=== PATIENT | female | born 1965 | race Two or more races ===

== ENCOUNTER → 2021-09-28 14:37 | Outpatient (BNVA) | payer OTHER, MEDICAID, SELFPAY | PROVIDERS: PCP Internal Medicine; Visit Provider Nurse Practitioner Family | DX: G43.109 Migraine with aura, not intractable, without status migrainosus (principal); M54.2 Cervicalgia | CPT/HCPCS: 99212 ==

== ENCOUNTER → 2022-04-02 14:47 | Outpatient (BNVA) | payer OTHER, MEDICAID, SELFPAY | PROVIDERS: PCP Internal Medicine; Visit Provider Nurse Practitioner Family | DX: G43.109 Migraine with aura, not intractable, without status migrainosus (principal); M54.2 Cervicalgia; Z79.899 Other long term (current) drug therapy | CPT/HCPCS: 99212 ==

== ENCOUNTER → 2022-10-04 13:47 | Outpatient (BNVA) | payer OTHER, SELFPAY | PROVIDERS: PCP Internal Medicine; Visit Provider Nurse Practitioner Family | DX: M54.2 Cervicalgia (principal); G43.109 Migraine with aura, not intractable, without status migrainosus | CPT/HCPCS: 99212 ==

== ENCOUNTER 2023-03-27 14:15 | Outpatient (AMB) | payer MEDICAID, SELFPAY ==
[2023-03-27 14:17] VITALS: BP 118/70; PULSE 71; O2SAT 99; BMI 25.6
--- NOTE | 2023-03-27 14:17 | MHC.OFFVIS ---
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 Pt reports she has 7 days temporal pressure headache with sinus congestion in February. She has seasonal allergy and getting allergy injection. Pt used rizatriptan at onset of headache, and it helped to relieve the migraine. Pt reports she takes magnesium 400 mg and vitamin B2 400 mg daily for migraine prevention. However, magnesium caused stomach pain. Pt reports pre-menopause symptoms, hot flashes and excessive sweating. She is on flexeril 5 mg BID as needed for neck and back pain. She has cortisone injection for back and shoulder. Mood is stable with citalopram 30 mg. Pt has asthma and contraindicated to use propranolol. [facility] Medical History Asthma HTN (hypertension) Migraine Surgical History H/O breast surgery Hx of section S/P thyroid biopsy Family History Father HTN (hypertension) Mother HTN (hypertension) Diabetes Skin cancer Sister HTN (hypertension) Maternal Grandfather Lung cancer Maternal Grandmother Skin cancer Social History (Updated 03/27/23 @ 14:26 by Kareen Aj CMA) Household Members: Spouse Housing: House Alcohol intake: current Alcohol intake frequency: holidays/special occasions only Patient Tobacco Use Status: Never used Tobacco Review of Systems Const All systems reviewed & are unremarkable except as noted in HPI and below Physical Exam Vital Signs: Last Vital Signs Pulse 71 03/27/23 14:17 BP 118/70 03/27/23 14:17 Pulse Ox 99 03/27/23 14:17 Oxygen Delivery Method Room Air 03/27/23 14:17 BMI result Body Mass Index 25.6 Const General: cooperative and healthy appearing Nutritional Appearance: average body habitus Orientation/consciousness: patient oriented x3 HEENT Head: Yes normocephalic Neck Other: Bilateral trapezius, semispinalis tightness.? Neck: Yes full ROM Resp Effort & Inspection: normal respiratory effort and able to speak in complete sentences Neuro General: patient oriented x3 and CN's II-XI intact bilaterally Deep tendon reflexes (DTR's): Rt Biceps (C5, C6): 3+, Left biceps reflex intensity grade: 3+, Right brachioradialis reflex intensity grade: 3+, Left brachioradialis reflex intensity grade: 3+, Right patellar reflex intensity grade: 3+ and Left patellar reflex intensity grade: 3+ Psych Appearance: grossly normal Mental Status: mental status grossly normal Speech and movement: Normal speech and movement present Affect: normal affect Attitude: cooperative Assessment & Plan Assessment & Plan (1) Cervicalgia: Code(s): M54.2 - Cervicalgia (2) Migraine with aura, not intractable, without status migrainosus: Code(s): G43.109 - Migraine with aura, not intractable, without status migrainosus Plan Advised patient to continue to take vitamin B2 400 mg q daily. Stop magnesium 400 mg. Start amitriptyline 10 mg qHS, and continue to use Rizatriptan 10 mg as needed at onset of headache. Continue to do home PT exercise for neck muscle tightness. Advised patient to track migraine frequency and intensity. Medications: New amitriptyline 10 mg PO BEDTIME 30 days 30 tabs 3RF Coding Level of Care Code Est Pt Level 4 (80684) Diagnoses Cervicalgia M54.2 Migraine with aura, not intractable, without status migrainosus G43.109
== END 2023-03-27 14:44 | disposition home or self-care (01) ==
PROVIDERS: Visit Provider Nurse Practitioner Family
DX: M54.2 Cervicalgia (principal); G43.109 Migraine with aura, not intractable, without status migrainosus
CPT/HCPCS: 99214

== ENCOUNTER → 2023-03-27 14:15 | Outpatient (BNVA) | payer OTHER, SELFPAY | PROVIDERS: Visit Provider Nurse Practitioner Family | DX: G43.109 Migraine with aura, not intractable, without status migrainosus (principal); M54.2 Cervicalgia | CPT/HCPCS: 99212 ==

== ENCOUNTER 2023-06-26 14:43 | Outpatient (AMB) | payer OTHER, MEDICAID, SELFPAY ==
--- NOTE | 2023-06-26 15:22 | MHC.OFFVIS ---
Intake Vital Signs 06/26/23 15:24 Height 5 ft Weight 132 lb 6 oz BMI 25.8 BP 122/78 Blood Pressure Location Rt brachial Position Sitting Respiration 16 Pulse 80 Pulse Source Pulse Oximeter Pulse Oximetry (%) 97 Oxygen Delivery Method Room Air Intake Visit Reasons: 3m follow up/ Confirmed Intake Note: Pt presents to office for 3 month follow up for migraines. 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 Pt reports she has 5 days temporal pressure headache in May. Pt used rizatriptan at onset of headache, and it helped to relieve the migraine. Pt takes vitamin B2 400 mg daily for migraine prevention. She tried magnesium, but it caused stomach pain. Pt reports pre-menopause symptoms, hot flashes and excessive sweating. 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 She did not start amitriptyline yet. She is on flexeril 5 mg BID as needed for neck and back pain. She had cortisone injection for back and shoulder. Pt can't sleep well due to the body pain. Mood is stable with citalopram 30 mg. Pt has asthma and contraindicated to use propranolol. [facility] Medical History Asthma HTN (hypertension) Migraine Surgical History S/P thyroid biopsy H/O breast surgery Hx of section Family History Father HTN (hypertension) Mother HTN (hypertension) Diabetes Skin cancer Sister HTN (hypertension) Maternal Grandfather Lung cancer Maternal Grandmother Skin cancer Social History Household Members: Spouse Housing: House Alcohol intake: current Alcohol intake frequency: holidays/special occasions only Patient Tobacco Use Status: Never used Tobacco Review of Systems Const All systems reviewed & are unremarkable except as noted in HPI and below Physical Exam Vital Signs: Last Vital Signs Pulse 80 06/26/23 15:24 Resp 16 06/26/23 15:24 BP 122/78 06/26/23 15:24 Pulse Ox 97 06/26/23 15:24 Oxygen Delivery Method Room Air 06/26/23 15:24 BMI result Body Mass Index 25.8 Const General: cooperative and healthy appearing Nutritional Appearance: average body habitus Orientation/consciousness: patient oriented x3 HEENT Head: Yes normocephalic Neck Other: Bilateral trapezius, semispinalis tightness.? Neck: Yes full ROM Resp Effort & Inspection: normal respiratory effort and able to speak in complete sentences Neuro General: patient oriented x3 and CN's II-XI intact bilaterally Deep tendon reflexes (DTR's): Rt Biceps (C5, C6): 3+, Left biceps reflex intensity grade: 3+, Right brachioradialis reflex intensity grade: 3+, Left brachioradialis reflex intensity grade: 3+, Right patellar reflex intensity grade: 3+ and Left patellar reflex intensity grade: 3+ Psych Appearance: grossly normal Mental Status: mental status grossly normal Speech and movement: Normal speech and movement present Affect: normal affect Attitude: cooperative Assessment & Plan Assessment & Plan (1) Cervicalgia: Code(s): M54.2 - Cervicalgia (2) Migraine with aura, not intractable, without status migrainosus: Code(s): G43.109 - Migraine with aura, not intractable, without status migrainosus Plan Advised patient to continue to take vitamin B2 400 mg q daily. Start amitriptyline 10 mg qHS, and continue to use Rizatriptan 10 mg as needed at onset of headache. Continue to do home PT exercise for neck muscle tightness. Advised patient to track migraine frequency and intensity. Coding Level of Care Code Est Pt Level 3 (69099) Diagnoses Cervicalgia M54.2 Migraine with aura, not intractable, without status migrainosus G43.109
[2023-06-26 15:24] VITALS: BP 122/78; PULSE 80; RESP 16; O2SAT 97; BMI 25.8
== END 2023-06-26 15:41 | disposition home or self-care (01) ==
PROVIDERS: PCP Internal Medicine; Visit Provider Nurse Practitioner Family
DX: M54.2 Cervicalgia (principal); G43.109 Migraine with aura, not intractable, without status migrainosus
CPT/HCPCS: 99213

== ENCOUNTER → 2023-06-26 14:43 | Outpatient (BNVA) | payer OTHER, SELFPAY | PROVIDERS: PCP Internal Medicine; Visit Provider Nurse Practitioner Family | DX: G43.109 Migraine with aura, not intractable, without status migrainosus (principal); M54.2 Cervicalgia | CPT/HCPCS: 99212 ==

== ENCOUNTER 2024-04-09 14:52 | Outpatient (AMB) | payer OTHER, SELFPAY ==
[2024-04-09 14:58] VITALS: BP 118/74; BMI 24.8
--- NOTE | 2024-04-09 14:58 | A.OFFVIS_ITS ---
Vital Signs 04/09/24 14:58 Height 5 ft Weight 127 lb BMI 24.8 BP 118/74 Blood Pressure Location Rt brachial Position Sitting Intake Visit Reasons: 6 mo f/u - Migraines Intake Note: Patient presents for migraines. patient still having migraines. Allergies pollen Allergy (Unknown, Uncoded 04/09/24 15:00) Unknown Medication List - Last Reconciled 04/09/24 by MILTON Summers albuterol sulfate mg inhalation Q4H PRN amitriptyline 10 mg PO BEDTIME 30 days baclofen 5 - 10 mg (1 - 2 x 5 mg) PO BEDTIME PRN 30 days cetirizine 10 mg PO DAILY citalopram 20 mg PO DAILY clobetasol 0.05% mL topical cyclobenzaprine 5 mg PO BID PRN 30 days fluocinolone and shower cap 0.01 % ea topical BID PRN fluticasone propionate 50 mcg/actuation 2 sprays intranasal DAILY galcanezumab-gnlm (Emgality Pen) 240 mg (2 mL) subcut ONCE 30 days hydroxyzine HCl 25 mg PO BEDTIME PRN magnesium oxide 400 mg PO BEDTIME mometasone 200 mcg/actuation (Asmanex HFA) 0 mcg inhalation BID omeprazole 20 mg PO DAILY PRN riboflavin (vitamin B2) 400 mg PO DAILY rizatriptan 10 mg PO Q2H PRN 30 days tacrolimus 0.1% topical HPI Comments Details: 58-yr-old female presents for f/u visit of snehal Pt denies any significant interval medical changes. Pt is having 1, maybe 2 headaches per week, but has 3 severe migraine attacks which can last a whole day. Neck tightness can trigger occipital region pressure as well. Rizatriptan helps some. Cyclobenzaprine helps the neck tightness but makes her tired. Baseline headache characteristics: Bilateral frontal, parietal top of head pressure, throbbing pain a/w photophobia, phonophobia, osmophobia w/ strong smells, nausea, neck tightness, allodynia, some difficulty thinking, activity intolerance. [facility] Medical History HTN (hypertension) Asthma Migraine Surgical History S/P thyroid biopsy H/O breast surgery Hx of section Family History Father HTN (hypertension) Mother HTN (hypertension) Diabetes Skin cancer Sister HTN (hypertension) Maternal Grandfather Lung cancer Maternal Grandmother Skin cancer Social History Household Members: Spouse Housing: House Alcohol intake: current Alcohol intake frequency: holidays/special occasions only Patient Tobacco Use Status: Never used Tobacco Physical Exam Vital Signs: Last Vital Signs BP 118/74 04/09/24 14:58 BMI result Body Mass Index 24.8 Const General: cooperative and no acute distress Orientation/consciousness: patient oriented x3 Resp Effort & Inspection: normal respiratory effort and able to speak in complete sentences Neuro General: patient oriented x3 Cranial nerves: Yes CN's II-XII intact bilaterally Cognition (Neuro): normal cognition Psych Appearance: grossly normal Mental Status: mental status grossly normal Speech and movement: Normal speech and movement present Affect: normal affect Attitude: cooperative Assessment & Plan Assessment & Plan (1) Migraine with aura, not intractable, without status migrainosus: Code(s): G43.109 - Migraine with aura, not intractable, without status migrainosus Category: Medical (2) Cervicalgia: Code(s): M54.2 - Cervicalgia Category: Medical Plan For cervicalgia: Stop cyclobenzaprine- causes sleepiness. For overall headache management: It is important to practice good self-care, including but not limited to eating a healthy diet, drinking enough fluids (typically 64 oz per day), maintaining a good sleep routine, and engaging in regular physical activity (typically 30-45 minutes of moderate physical activity 5 days per week). For acute headache treatment: It is important to take as needed acute medications at the first sign of headache, however you want to avoid taking most as needed headache too often as this can lead to medication overuse/adaptation headaches. Continue Trial Rizatriptan 10mg tab, 1/2 - 1 tab (5-10mg) at onset of headache, may repeat in 2 hours. Max of 2 tabs (200mg) per 24 hours. May adjunct with OTC Tylenol 650mg every 4 hours, Ibuprofen (liquigel) 600mg every 6 hours, or Naproxen (liquigel) 440mg every 12 hrs as needed. Acute migraine medication contraindications: None For headache prevention medication: Preventative medications should be taken routinely as prescribed for best effect, it may take several weeks to see full effect. Start Emgality 120mg/ml auto-injection: Loading dose: 240mg (2 120mg/ml autoinjections) via subcutaneous injection in 2 different sites). Then in 30 days, start Maintenance dose 120mg (120mg/ml autoinjector) subcutaneous injection every month. Pt requests injection training once Emgality available. Previous migraine prevention medication trials: Amitriptyline 10mg qhs- caused sleepiness. Migraine prevention medication contraindications: Beta-blockers d/t symptomatic asthma dx. Follow-up in 6 months or sooner prn. Medications: New galcanezumab-gnlm (Emgality Pen) Loading dose: 120 mg subcu injection x2 in alternate sites (total 240 mg). To be followed by maintenance dose of 120 mg subcu q.month. 240 mg (2 mL) subcut ONCE 30 days 2 mL 0RF G43.109 - Migraine with aura, not intractable, without status migrainosus baclofen 5 - 10 mg (1 - 2 x 5 mg) PO BEDTIME 30 days PRN 60 tabs 3RF muscle spasm Changed From rizatriptan Do not exceed 4 tabs/week 10 mg PO Q2H 12 tabs 6RF for migraine To rizatriptan Max 2 tabs per day or 6 tabs/week 10 mg PO Q2H 30 days PRN 12 tabs 6RF for migraine Coding Level of Care Code Est Pt Level 4 (17887) Diagnoses Migraine with aura, not intractable, without status migrainosus G43.109 Cervicalgia M54.2
== END 2024-04-09 16:05 | disposition home or self-care (01) ==
PROVIDERS: PCP Internal Medicine; Visit Provider Nurse Practitioner Family
DX: G43.109 Migraine with aura, not intractable, without status migrainosus (principal); M54.2 Cervicalgia
CPT/HCPCS: 99214

== ENCOUNTER → 2024-04-09 14:52 | Outpatient (BNVA) | payer OTHER, SELFPAY | PROVIDERS: PCP Internal Medicine; Visit Provider Nurse Practitioner Family | DX: G43.109 Migraine with aura, not intractable, without status migrainosus (principal); M54.2 Cervicalgia | CPT/HCPCS: 99212 ==

== ENCOUNTER → 2024-04-28 14:52 | Outpatient (BNVA) | payer OTHER, SELFPAY | PROVIDERS: PCP Internal Medicine; Visit Provider Nurse Practitioner Family ==

== ENCOUNTER 2024-10-21 15:23 | Outpatient (AMB) | payer OTHER, SELFPAY ==
--- NOTE | 2024-10-21 15:29 | MHC.OFFVIS ---
Vital Signs 10/21/24 15:30 Height 5 ft Weight 133 lb BMI 26.0 BP 126/76 Blood Pressure Location Rt brachial Position Sitting Pulse 85 Pulse Source Pulse Oximeter Pulse Oximetry (%) 98 Oxygen Delivery Method Room Air Intake Visit Reasons: Follow Up 6mo Intake Note: Patient presents follow up Migraine medication Allergies pollen Allergy (Unknown, Uncoded 10/21/24 15:31) Unknown HPI Comments Details: 59-yr-old female presents for f/u visit of migraine d/o and cervicalgia. Pt denies any significant interval medical changes. There does since the last visit, patient started Emgality which she states she is tolerating, and has been very effective in reducing the frequency severity. Prior to starting Emgality patient having greater than a migraine days per month and is now having 3 migraine days per. Neck tightness can trigger occipital region pressure, and now using cyclobenzaprine 5 10 q.h.s. which is helpful- typically only uses when she has the next day. Rizatriptan is now more effective. Baseline headache characteristics: Bilateral frontal, parietal top of head pressure, throbbing pain a/w photophobia, phonophobia, osmophobia w/ strong smells, nausea, neck tightness, allodynia, some difficulty thinking, activity intolerance. PFSH Medical History HTN (hypertension) Asthma Migraine Surgical History S/P thyroid biopsy H/O breast surgery Hx of section Family History Father HTN (hypertension) Mother HTN (hypertension) Diabetes Skin cancer Sister HTN (hypertension) Maternal Grandfather Lung cancer Maternal Grandmother Skin cancer Social History Household Members: Spouse Housing: House Alcohol intake: current Alcohol intake frequency: holidays/special occasions only Patient Tobacco Use Status: Never used Tobacco Physical Exam Vital Signs: Last Vital Signs Pulse 85 10/21/24 15:30 BP 126/76 10/21/24 15:30 Pulse Ox 98 10/21/24 15:30 Oxygen Delivery Method Room Air 10/21/24 15:30 BMI result Body Mass Index 26.0 Const General: cooperative and no acute distress Orientation/consciousness: patient oriented x3 Resp Effort & Inspection: normal respiratory effort and able to speak in complete sentences Neuro General: patient oriented x3 Cranial nerves: Yes CN's II-XII intact bilaterally Cognition (Neuro): normal cognition Psych Appearance: grossly normal Mental Status: mental status grossly normal Speech and movement: Normal speech and movement present Affect: normal affect Attitude: cooperative Assessment & Plan Assessment & Plan (1) Migraine with aura, not intractable, without status migrainosus: Code(s): G43.109 - Migraine with aura, not intractable, without status migrainosus Category: Medical (2) Cervicalgia: Code(s): M54.2 - Cervicalgia Category: Medical Plan For cervicalgia: May use cyclobenzaprine 5-10mg qhs prn. For overall headache management: It is important to practice good self-care, including but not limited to eating a healthy diet, drinking enough fluids (typically 64 oz per day), maintaining a good sleep routine, and engaging in regular physical activity (typically 30-45 minutes of moderate physical activity 5 days per week). For acute headache treatment: It is important to take as needed acute medications at the first sign of headache, however you want to avoid taking most as needed headache too often as this can lead to medication overuse/adaptation headaches. Continue Rizatriptan 10mg tab, 1/2 - 1 tab (5-10mg) at onset of headache, may repeat in 2 hours. Max of 2 tabs (200mg) per 24 hours. May adjunct with OTC Tylenol 650mg every 4 hours, Ibuprofen (liquigel) 600mg every 6 hours, or Naproxen (liquigel) 440mg every 12 hrs as needed. Acute migraine medication contraindications: None For headache prevention medication: Continue Emgality 120mg/ml auto-injections- as pt has had > 50% reduction in monthly migraine days since initiation of tx. Instructions: Emgality 120mg/ml auto-injection: maintenance dose 120mg (120mg/ml autoinjector) subcutaneous injection every month. Previous migraine prevention medication trials: Amitriptyline 10mg qhs- caused sleepiness. Migraine prevention medication contraindications: Beta-blockers d/t symptomatic asthma dx. Follow-up in 6 months or sooner prn. Medications: Changed From cyclobenzaprine 5 mg PO BID 30 days PRN 60 tabs 6RF muscle spasm To cyclobenzaprine 5 - 10 mg (1 - 2 x 5 mg) PO BEDTIME 30 days PRN 30 tabs 6RF muscle spasm From galcanezumab-gnlm (Emgality Pen) Loading dose: 120 mg subcu injection x2 in alternate sites (total 240 mg). To be followed by maintenance dose of 120 mg subcu q.month. 240 mg (2 mL) subcut ONCE 30 days 1 mL 6RF G43.109 - Migraine with aura, not intractable, without status migrainosus To galcanezumab-gnlm (Emgality Pen) maintenance dose of 120 mg subcu q.month. 120 mg subcut ONCE 30 days 1 mL 11RF G43.109 - Migraine with aura, not intractable, without status migrainosus Refilled rizatriptan Max 2 tabs per day or 6 tabs/week 10 mg PO Q2H 30 days PRN 12 tabs 6RF for migraine Coding Level of Care Code Est Pt Level 4 (92481) Diagnoses Migraine with aura, not intractable, without status migrainosus G43.109 Cervicalgia M54.2
[2024-10-21 15:30] VITALS: BP 126/76; PULSE 85; O2SAT 98; BMI 26.0
--- OUTSIDE RECORDS SUMMARY | 2024-10-21 17:43 | XMS_ITS | Encounter Summary ---
Author Organization [email or web address] [facility] Address [address] [place] [address] Care Team Providers Care Director Mission Name Role Phone Unavailable Primary Care Provider Unavailabl e Encounter Details Date Type Department Care Team (Latest Contact Info) Description 12/27/2020 Abstract [facility] CONVERSION[facility] Dental, Provider, DDS Social History Tobacco Use Types Packs/Day Years Used Date Smoking Tobacco: Never Assessed Comments Unknown Sex and Gender Information Value Date Recorded Sex Assigned at Female 05/21/2022 10:18 AM EDT Legal Sex Female 10:18 AM EDT Gender Identity Female 05/21/2022 10:18 AM EDT Sexual Orientation Choose not to disclose 2021 10:18 AM EDT documented as of this encounter Plan of Treatment Not on file documented as of this encounter Visit Diagnoses Not on filedocumented in this encounter
--- OUTSIDE RECORDS SUMMARY | 2024-10-21 17:43 | XMS_ITS | Encounter Summary ---
Author Organization [facility] Address [address] [place] [address] Care Team Providers Care Pediatric Critical Care Nurse Name Role Phone Unavailable Primary Care Provider Unavailabl e Encounter Details Date Type Department Care Team (Latest Contact Info) Description 07/28/2019 Abstract [facility] CONVERSIONS Dental, Provider, DDS Social History [...]
--- OUTSIDE RECORDS SUMMARY | 2024-10-21 17:43 | XMS_ITS | Clinical Summary ---
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 Phone Unavailable Primary Care Provider Unavailabl e Social History Tobacco Use Types Packs/Day Years Used Date Smoking Tobacco: Never Assessed Sex and Gender Information Value Date Recorded Sex Assigned at Not on file Gender Identity Not on file Sexual Orientation Not on file Plan of Treatment Health Maintenance Due Date Last Done Comments Hepatitis C Virus Screening 1967 HIV Screening 1980 DTaP/Tdap/Td Vaccines (1 - Tdap) 1986 Hepatitis B Vaccines (1 of 3 - 19+ 3-dose series) 1986 Pneumococcal Vaccines 50+ (1 of 1 - PCV) 2017 Zoster (Shingles) Vaccine (1 of 2) 2017 COVID-19 Vaccine ( - 2023-2 5 season) 2024 Pneumococcal Vaccine: Pediat britni (0-5 Years) and At-Risk Patients (6 to 49 Years) Aged Out No longer eligible b ased on patient's age to complete this topic
--- OUTSIDE RECORDS SUMMARY | 2024-10-21 17:43 | XMS_ITS | Encounter Summary ---
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 Lettering Name Role Phone Unavailable Primary Care Provider Unavailabl e Reason for Visit * Reason Onset Date Comments Patient states DD of [place] 08/19/2024 Encounter Details Date Type Department Care Team (Late st Contact Info) Description 08/19/2024 Telephone [facility] [address] [place] [address] Zuleyma Lilliananpreet [address] [place] [address] Patient states DD of [place] Social History Tobacco Use Types Packs/Day Years Used Date Smoking Tobacco: Never Assessed Comments Unknown Sex and Gender Information Value Date Recorded Sex Assigned at Female 05/21/2022 10:18 AM EDT Legal Sex Female 10:18 AM EDT Gender Identity Female 05/21/2022 10:18 AM EDT Sexual Orientation Choose not to disclose 2021 10:18 AM EDT documented as of this encounter Miscellaneous Notes * Telephone Encounter - Natalie Quintero - 08/19/2024 8:42 AM EST Patient states she has DD of [place] insurance but unable to find the number in ortal and patient did dnot have her card available at the time as she was at work. Informed patient she must take card with her to office to add insurance to her chart. Currently the insurance listed is [employer] documented in this encounter Plan of Treatment Not on file documented as of this encounter Visit Diagnoses Not on filedocumented in this encounter
--- OUTSIDE RECORDS SUMMARY | 2024-10-21 17:43 | XMS_ITS | Clinical Summary ---
Author Organization [facility] Address [address] [place] [address] Phone Care Team Providers Care Variety Saw Operator Name Role Phone Macie Conley MD Primary Care Prov ider Allergies Active Allergy Reactions Criticality Noted Date Comments Adhesive 01/17/2024 Adhesive Tape [Tape]: Other Reaction(s): Rash/Dermatitis Other 04/09/2016 1. Seasonal Allergies 2. Fruit (Generic) Medications albuterol 2.5 mg /3 mL (0.083 %) nebulizer solution TAKE 1 VIAL BY NEBULIZATION EVERY 4 HOURS NEEDED FOR WHEEZING OR SHORTNESS OF BREATH. 0 Active meloxicam (MOBIC) 7.5 mg tablet Take 1 Tablet by mouth daily as needed for Pain (Only as needed.). 4 Active lidocaine 3.5 % adhesive patch,medicated Apply 1 Patch topically daily. 4 Active diclofenac (VOLTAREN) 1 % topical gel Apply 4 g topically 4 times daily as needed for Other (arthritis pain). 4 Active acetaminophen (TYLENOL 8 HOUR) 650 mg 8 hr tablet Take 1 Tablet by mouth every 8 hours as needed for Pain. 4 Active mometasone (Asmanex HFA) 200 mcg/actuation HFA aerosol inhaler inhaler TOME DOS INHALACIONES POR V A ORAL DOS VECES AL D A 3 Active omeprazole (PriLOSEC) [address] capsule Take 1 Capsule by mouth daily. 3 Active mometasone HFA (Asmanex HFA) 100 mcg/actuation HFA aerosol inhaler inhaler Inhale into the lungs. Allergy provider Active fluticasone HFA (Flovent HFA) 110 mcg/actuation inhaler 2 Active rizatriptan (MAXALT) 10 mg tablet 2 Active ketoconazole (NIZORAL) 2 % shampoo USE A FACE WASH EVERYDAY 1 Active clobetasoL 0.05 % shampoo APPLY 1 DOSE TO DRY SCALP DAILY AND LATHER IN RINSE AFTER 5-10 MINUTES USE CONSECUTIVELY FOR 2 WEEKS THEN DECREASE USE TO 3 TIMES A WEEK 1 Active fluocinolone and shower cap 0.01 % oil Apply 1 Dose topically daily. Apply to scalp daily 1 Active fluticasone propionate (FLONASE) 50 mcg/actuation nasal spray 2 sprays each nostril twice daily as needed. 0 Active albuterol HFA (PROAIR HFA ; PROVENTIL HFA ; VENTOLIN HFA) 90 mcg/actuation inhaler Inhale 2 Puffs into the lungs every 4 hours as needed for Cough or Wheezing. 0 Active cetirizine (ZyrTEC) 10 mg tablet Take 1 Tab by mouth daily for 360 days. One tab daily 8 Active trimethoprim-po lymyxin b (POLYTRIM) ophthalmic solution Place 1 Drop into the right eye 4 times daily for 7 days. - Right Eye Active estradioL (ESTRING) 2 mg (7.5 mcg /24 hour) vaginal ring Insert 2 mg into the vagina every 3 (three) months. follow package directions 1 each 3 4 025 Active citalopram (CeleXA) 20 mg tabletIndicatio ns:Essential (primary) hypertension,Dy smenorrhea, unspecified TOME 1 TABLETA POR VIA ORAL TODOS [place] 90 tablet 1 5 Active Active Problems Problem Noted Date Diagnosed Date Thyroid nodule 04/22/2024 Overview (04/22/2024): Ultrasound of thyroid on 04/08/2020 showed stable left-sided thyroid nodule, 1 stable nodule on the right side of the thyroid and one stable nodule on the right side that has decreased in size. Fine-needle aspiration biopsy done in 2018 showed benign left-sided thyroid nodule. Depression 12/27/2023 Uterine fibroid 08/08/2022 Overview (04/22/2024): 08/07/2022 FINDINGS: The uterus measures 10.1 x 5.2 x 4.9 cm for a volume of 134 mL, and contains a 2.0 x 2.7 x 3.5 cm exophytic left fundal fibroid, previously 1.8 x 1.4 x 2.6 cm. Psoriasis of scalp 07/05/2021 Anxiety 07/05/2021 Perimenopause 05/23/2020 Overview (04/22/2024): Last Assessment & Plan: I discussed symptoms of perimenopause with the patient. Recommend that she keep track of her menstrual cycles. Discussed definition of menopause is 1 year without menses and that perimenopause can vary in duration. Recommend follow-up if menopausal symptoms become bothersome Dyslipidemia 06/15/2019 Lactose intolerance 02/09/2019 Migraine 01/18/2015 GERD (gastroesophageal reflux disease) 5 Constipation 01/18/2015 Asthma 12/22/2014 Allergic rhinitis 12/22/2014 Encounters Date Type Department Care Team Description 08/13/2024 5:48 PM EST - 08/13/2024 11:59 PM EST Hospital Encounter [facility] MRI [address] [place] [id number] Radiculopathy, cervical region Discharge Disposition: Home or Self Care 08/05/2024 3:30 PM EST Office Visit Orthopedic Surgery [facility] [address] [facility] [address] [place] [address] Jasper Mix MD Cervicalgia (Primary Dx); Cervical radiculopathy from Last 3 Months Immunizations Name Administration Dates Next Due Influenza trivalent, with pr eservative (Fluzone; Afluria) 6mo and older 05/26/2014,03/26/2013,08/26/2008 Moderna SARS-CoV-2 COVID-19, mRNA, LNP-S, preservative free 12/06/2020,11/08/2020 PPD Test 09/22/2019, 9,11/20/2017,11/28,12/14/2015,12/22/2014 Pneumococcal polysaccharide 23 valent (Pneumovax 23) 2yo and older 04/20/2016,01/30/2011 Td Tetanus diptheria (Tdvax) 7yo and older 01/10/2006 Tdap Tetanus diptheria acell ular pertussis (Boostrix; Adacel) 7yo and older 09/18/2018,12/16/2012 Varicella live (Varivax) 12m o and older 05/05/2013 Surgical History Surgery Date Site/Laterality Comments SECTION PROCEDURE: HISTORICAL DELIVERY TUBAL LIGATION PROCEDURE: HISTORICAL TUBAL LIGATION COLONOSCOPY 03/20/2018 PROCEDURE: HISTORICAL COLONOSCOPY; COMMENT: negative screening exam BREAST SURGERY adan 2015 Left PROCEDURE: SD UNLISTED PROCEDURE BREAST; COMMENT: ductasl excision Medical History Medical History Date Comments Asthma DX:Asthma Thyroid nodule DX:Thyroid nodul e Allergic rhinitis 12/22/2014 DX:Allergic rh initis GERD (gastroesophageal reflu x disease) 01/18/2015 DX:GERD (gastroesophageal re flux disease) Constipation 01/18/2015 DX:Constipation Migraine 01/18/2015 DX:Migraine Essential hypertension DX:Essent ial hypertension Anxiety state DX:Anxiety state Elevated fasting glucose 06/06/2020 DX:Elev ated fasting glucose Acute right flank pain 04/13/2021 DX:Acute right flank pain Covid-19 07/25/2022 DX:COVID-19; COM MENT: Diagnosed 07/18/2022 with asthma exacerbation Pelvic pain 04/28/2020 DX:Pelvic pain Family History Medical History Relation Name Comments No Known Problems Daughter Coronary artery disease Father Hypertension Father Prostate cancer Maternal Grandfather Diabetes Maternal Grandmother Hypertension Maternal Grandmother Diabetes Mother Hypertension Mother Other: skin cancer Mother Other: skin cancer Mother's side grandmot her No Known Problems Other Stomach cancer Paternal Grandfather No Known Problems Paternal Grandmother No Known Problems Sister x2 Breast cancer Neg Hx Relation Name Status Comments Daughter Father Alive Maternal Grandfather Maternal Grandmother Alive Mother Alive Mother's side Other Paternal Grandfather Paternal Grandmother Sister x2 Alive Social History Tobacco Use Types Packs/Day Years Used Date Smoking Tobacco: Never Smokeless Tobacco: Never Tobacco Cessation:Counseling Given: Not Answered Alcohol Use Standard Drinks/Week Comments No 0 (1 standard drink = 0.6 oz pur e alcohol) Housing Instability Answer Date Recorde d Are you worried that in the next 2 months you may not have stable housing? No 07/12/2024 Food Access & Nutrition Answer Date Rec orded Do you have access to a vari ety of food including fruits and vegetables? Yes 07/12/2024 Access to Healthcare Answer Date Record ed Within the last 3 months, ho w many times did you visit the emergency department for your medical care? 0 07/12/2024 Health Literacy Answer Date Recorded How often do you need to hav e someone help you when you read instructions, pamphlets, or other written material from your doctor or pharmacy? Rarely 07/12/2024 Caregiver: How often do you need to have someone help you when you read instructions, pamphlets, or other written material from your doctor or pharmacy? Not on file 07/12/2024 Financial Risk Answer Date Recorded How hard is it for you to pa y for the very basics like food, housing, medical care, and air conditioning / heating? Not very hard 07/12/2024 Transportation Answer Date Recorded Has the lack of transportati on kept you from meetings, work, or from getting things needed for daily living? No Has the lack of transportati on kept you from medical appointments or from getting medications? No 07/12/2024 Social Isolation Answer Date Recorded How often do you feel lonely or isolated from those around you? Sometimes 07/12/2024 Food Risk Answer Date Recorded Within the past 12 months we worried whether our food would run out before we got money to buy more. Never true 07/12/2024 Within the past 12 months th e food we bought just didn't last and we didn't have money to get more. Never true 07/12/2024 Dependent Care Answer Date Recorded Do you need help finding or paying for care for your loved ones. For example, child adolescent psychiatrist or elderly care for an older adult? No 07/12/2024 Education Answer Date Recorded Do you think completing more education or training, like finishing a GED, going to college, or learning a trade, would be helpful for you? N/A 07/12/2024 Employment and Income Answer Date Recor ded During the last four weeks, have you been actively looking for work? No 07/12/2024 Living Situation Answer Date Recorded What is your living situation? 1 09/12/2023 Comments No Sex and Gender Information Value Date Recorded Sex Assigned at Not on file Legal Sex Female 8:16 PM EST Gender Identity Not on file Sexual Orientation Not on file Obstetrics History Para Term AB IAB SAB Ectopic Multiple Livin g Live Births 2 2 2 2 Date Outcome GA Total Labor Labor/2nd/3rd Weight Sex Type Anes PTL Nita A1 A5 Name Clin Term Term Last Filed Vital Signs Vital Sign Reading Time Taken Comments Blood Pressure 138/85 07/13/2024 8:52 AM EST Pulse 80 07/13/2024 8:52 AM EST Temperature - - Respiratory Rate - - Oxygen Saturation - - Inhaled Oxygen Concentration - - Weight 59 kg (130 lb) 08/05/2024 3:26 PM EST Height 154.9 cm (5' 1 ) 08/05/2024 3:26 PM EST Body Mass Index 24.56 08/05/2024 3:26 PM EST Plan of Treatment Upcoming Encounters Date Type Department Care Team (Late st Contact Info) Description 12/29/2024 3:00 PM EDT Office Visit Adult Medicine [address] [phone] Macie Conley MD [address] [place] [id number] Health Maintenance Due Date Last Done Comments Hepatitis B Vaccines (1 of 3 - 19+ 3-dose series) 1986 Zoster Vaccines (1 of 2) 2017 05/05/2013 Pneumococcal Vaccine: 50+ Years (2 of 2 - PCV) 04/20/2017 04/20/2016, 01/30/2011 Pneumococcal Vaccine: Pediatrics (0 to 5 Years) and At-Risk Patients (6 to 64 Years) (2 of 2 - PCV) 04/20/2017 04/20/2016, 01/30/2011 COVID-19 Vaccine ( season) 2024 12/06/2020, 11/08/2020 Influenza Vaccine (#1) 2024 4, 03/26/2013, 08/26/2008 Hypertension/CHF/CAD Annual BMP Blood Test 11/17/2024 11/18/2023, 11/18/2023, 11/18/2023 Depression Screening 07/12/2025 07/12/2024, 12/27/19 Social Influencers of Health Screening 07/12/2025 07/12/2024 Breast Cancer Screening 06/25/2026 06/25/20 24, 06/19/2023, 03/30/2022, Additional history exists Cervical Cancer Screening: HPV 07/25/2027 07/25/2022 Colorectal Cancer Screening: Colonoscopy 03/20/2028 03/20/2018 Cholesterol Screening (Lipid Panel) 06/17/2028 06/17/2023 DTaP,Tdap,and Td Vaccines (4 - Td or Tdap) 09/18/2028 09/18/2018, 12/16/2012, 01/10/2006 Varicella Vaccines Aged Out 05/05/2013 No longer eligible based on patient's age to complete this topic HIV Screening Completed 04/20/2016 Hepatitis C Screening Completed 04/20/2016 HIB Vaccines Aged Out No longer eligi ble based on patient's age to complete this topic HPV Vaccines Aged Out No longer eligi ble based on patient's age to complete this topic Hepatitis A Vaccines Aged Out No long er eligible based on patient's age to complete this topic IPV Vaccines Aged Out No longer eligi ble based on patient's age to complete this topic MMR Vaccines Aged Out No longer eligi ble based on patient's age to complete this topic Meningococcal ACWY Vaccine Aged Out N o longer eligible based on patient's age to complete this topic Meningococcal B Vacine Aged Out No lo nger eligible based on patient's age to complete this topic RSV Immunization Patients Under 20 months Aged Out No longer eligible based on patient's age to complete this topic Procedures Procedure Name Priority Date/Time Associated Diagnosis Comments MR CERVICAL SPINE WO CONTRAST Routine 08/13/2024 7:05 PM EST Radiculopathy, cervical region MG MAMMO DIGITAL SCREENING W CHARLIE BILAT Routine 06/25/2024 8:01 AM EST Encounter for screening mammogram for breast cancer DEPRESSION SCREENING Routine 12/27/2023 ANNUAL BMP BLOOD TEST Routine 11/18/2023 LIPID PANEL Routine 06/17/2023 HPV Routine 07/25/2022 COLONOSCOPY Routine 03/20/2018 HEPATITIS C SCREENING Routine 04/20/2016 HIV SCREENING Routine 04/20/2016 from Last 3 Months or Most Recently Relevant to Health Maintenance Results * MR Cervical Spine wo Contrast (08/13/2024 7:05 PM EST) Anatomical Region Laterality Modality C-spine, Spine Magnetic Resonan ce 08/14/2024 9:53 AM EST Impressions 08/14/2024 11:24 AM EST Mild degenerative changes of the cervical spine as detailed above. -------- FINAL REPORT -------- Dictated By: Blair Rivero Dictated Date: 08/14/2024 09:53 ET Assigned Physician: Blair Rivero Reviewed and Electronically Signed By: Blair Rivero Signed Date: 08/14/2024 11:24 ET Workstation ID: [id number] Transcribed By: Self Edit Transcribed Date: 08/14/2024 09:58 ET Narrative 08/14/2024 11:24 AM EST PROCEDURE: MRI of the cervical spine without intravenous contrast. TECHNIQUE: Sagittal and axial multisequence MRI of the cervical spine without intravenous contrast administration. HISTORY: radiculopathy COMPARISON: Radiographs dated 12/26/2020. FINDINGS: The visualized portions of the brain and skull base are normal. Small left thyroid nodule which would be better evaluated with ultrasound. ??The paraspinous soft tissues are otherwise unremarkable. Straightening and slight reversal of the typical cervical lordosis. ??No listhesis. ??No concerning marrow infiltrative lesion. The cord is normal in caliber and signal. Cervical disc levels: C2-3: Minimal endplate irregularity without spinal or foraminal stenosis. C3-4: Mild endplate irregularity. ??Minimal bilateral uncovertebral spurs. ??No spinal or foraminal stenosis. C4-5: No significant disc or facet abnormality. ??No spinal or foraminal stenosis. C5-6: Mild disc space height loss. ??Small bilateral uncovertebral spurs and a minimal symmetric disc bulge. ??Mild left facet arthropathy. ??No significant spinal or foraminal stenosis. C6-7: Mild disc space height loss and endplate irregularity. ??Small bilateral uncovertebral spurs. ??No spinal stenosis. ??Mild left foraminal stenosis. C7-T1: Minimal endplate irregularity. ??No spinal or foraminal stenosis. Procedure Note Blair Rivero MD - 08/14/2024 PROCEDURE: MRI of the cervical spine without intravenous contrast. TECHNIQUE: Sagittal and axial multisequence MRI of the cervical spinewithout intravenous contrast administration. HISTORY: radiculopathy COMPARISON: Radiographs dated 12/26/2020. FINDINGS: The visualized portions of the brain and skull base are normal. Small left thyroid nodule which would be better evaluated with ultrasound.The paraspinous soft tissues are otherwise unremarkable. Straightening and slight reversal of the typical cervical lordosis. Nolisthesis. No concerning marrow infiltrative lesion. The cord is normal in caliber and signal. Cervical disc levels: C2-3: Minimal endplate irregularity without spinal or foraminalstenosis. C3-4: Mild endplate irregularity. Minimal bilateral uncovertebral spurs.No spinal or foraminal stenosis. C4-5: No significant disc or facet abnormality. No spinal or foraminalstenosis. C5-6: Mild disc space height loss. Small bilateral uncovertebral spursand a minimal symmetric disc bulge. Mild left facet arthropathy. Nosignificant spinal or foraminal stenosis. C6-7: Mild disc space height loss and endplate irregularity. Smallbilateral uncovertebral spurs. No spinal stenosis. Mild left foraminalstenosis. C7-T1: Minimal endplate irregularity. No spinal or foraminal stenosis. IMPRESSION: Mild degenerative changes of the cervical spine as detailed above. -------- FINAL REPORT -------- Dictated By: Blair Rivero Dictated Date: 08/14/2024 09:53 ET Assigned Physician: Blair Rivero Reviewed and Electronically Signed By: Blair Rivero Signed Date: 08/14/2024 11:24 ET Workstation ID: [id number] Transcribed By: Self Edit Transcribed Date: 08/14/2024 09:58 ET us Serjio Britton DO IMG MRI PROCEDURES Final Result * MG Mammo Digital Screening w Charlie bilat (06/25/2024 8:01 AM EST) Anatomical Region Laterality Modality Breast Bilateral Mammography 06/25/2024 9:29 AM EST Impressions 06/25/2024 9:31 AM EST BILATERAL BREASTS: Negative, no evidence of malignancy. Normal interval follow- up is recommended in 12 months. BREAST DENSITY: B - There are scattered areas of fibroglandular density. BI-RADS CATEGORY: 1 - NEGATIVE RECOMMENDATION: Screening bilateral mammogram is recommended in 1 year. Mammo Location: [facility], [address] [place] [address], [id number], . -------- FINAL REPORT -------- Dictated By: Sadiq Silveira Dictated Date: 06/25/2024 09:29 ET Assigned Physician: Sadiq Silveira Reviewed and Electronically Signed By: Sadiq Silveira Signed Date: 06/25/2024 09:31 ET Workstation ID: [id number] Transcribed By: Self Edit Transcribed Date: 06/25/2024 09:29 ET Narrative 06/25/2024 9:31 AM EST STUDY: Bilateral screening mammography with tomosynthesis and CAD TECHNIQUE: Bilateral full-field digital screening mammography is obtained and read in conjunction with computer-aided detection. ??Tomosynthesis as well as 2-D C view imaging were obtained. ?? COMPARISON: Comparison made to multiple prior, most recent June 19, 2023, and most remote February 21, 2015. BILATERAL BREASTS: No significant masses, suspicious calcifications or other abnormalities are seen. Procedure Note Sadiq Silveira MD - 06/25/2024 STUDY: Bilateral screening mammography with tomosynthesis and CAD TECHNIQUE: Bilateral full-field digital screening mammography is obtainedand read in conjunction with computer-aided detection. Tomosynthesis aswell as 2-D C view imaging were obtained. COMPARISON: Comparison made to multiple prior, most recent May, and most remote February 21, 2015. BILATERAL BREASTS: No significant masses, suspicious calcifications orother abnormalities are seen. IMPRESSION: BILATERAL BREASTS: Negative, no evidence of malignancy. Normal intervalfollow-up is recommended in 12 months. BREAST DENSITY: B - There are scattered areas of fibroglandular density. BI-RADS CATEGORY: 1 - NEGATIVE RECOMMENDATION: Screening bilateral mammogram is recommended in 1 year. Mammo Location: [facility], [address] [place] [address], [phone], . -------- FINAL REPORT -------- Dictated By: Sadiq Silveira Dictated Date: 06/25/2024 09:29 ET Assigned Physician: Sadiq Silveira Reviewed and Electronically Signed By: Sadiq Silveira Signed Date: 06/25/2024 09:31 ET Workstation ID: [id number] Transcribed By: Self Edit Transcribed Date: 06/25/2024 09:29 ET Macie Conley MD IMG BI PROCEDURES Final Result * Depression Screening (12/27/2023) Depression Screening Abstracted Historical Provider HEALTH MAINTENANCE Final Result * Annual BMP Blood Test (11/18/2023) Annual BMP Blood Test Abstracted [facility] Provider HEALTH MAINTENANCE Final Result * (ABNORMAL) Lipid panel (06/17/2023) [facility] LDL/HDL Ratio 3 0 - 4 Triglycerides 113 0 - 150 mg/dL Cholesterol 219(A) 0 - 200 mg/dL HDL 69 >=40 mg/dL LDL Cholesterol 128(A) 0 - 100 mg/dL Blood Venous blood specimen / Unknown Result [facility] Provider LAB BLOOD ORDERABLES Jenna l Result * Cervical Cancer Screening: HPV (07/25/2022) [facility] Cervical Cancer Screening: HPV Abstracted ,Negative Result [facility] Provider HEALTH MAINTENANCE Final Result * Colonoscopy (03/20/2018) [facility] Colonoscopy Abstracted, No interpretation Anatomical Region Laterality Modality Other Result [facility] Provider HEALTH MAINTENANCE Final Result * HIV Screening (04/20/2016) [facility] HIV Screening Abstracted [facility] Provider HEALTH MAINTENANCE Final Result * Hepatitis C Screening (04/20/2016) [facility] Hepatitis C Screening Abstracted Result [facility] Provider HEALTH MAINTENANCE Final Result from Last 3 Months or Most Recently Relevant to Health Maintenance Insurance [facility] [employer] Care Teams Variety Saw Operator Relationship Specialty Start Date End Date Macie Conley MD [address] [place] [phone] PCP - General Internal Medicine 02/19/22
--- OUTSIDE RECORDS SUMMARY | 2024-10-21 17:43 | XMS_ITS ---
Author Name [facility] Organization Unknown Encounters Encounter Type Encounter Reason Primary Diagnosis Location Date Ambulatory [facility] 08/07/2024 Care Team Organization Name Specialty Phone Email Start Date End Da te [facility] 2024
--- OUTSIDE RECORDS SUMMARY | 2024-10-21 17:43 | XMS_ITS | Clinical Summary ---
Author Organization [facility] Address [address] [place] [address] Care Team Providers Care Analytics Senior Manager Name Role Phone Unavailable Primary Care Provider Unavailabl e Allergies Active Allergy Reactions Criticality Noted Date Comments Ibuprofen 08/19/2024 Medications albuterol (2.5 MG/3ML) 0.083% nebulizer solution TAKE 1 VIAL BY NEBULIZATION EVERY 4 HOURS NEEDED FOR WHEEZING OR SHORTNESS OF BREATH. 5 Active loratadine (Claritin) 10 MG tablet TOME 1 TABLETA POR V A ORAL TODOS LOS D 5 Active citalopram (CeleXA) 20 MG tablet TOME 1 TABLETA POR VIA ORAL TODOS LOS GONZALEZ 5 Active estradiol (Vivelle-DOT) 0.05 MG/24HR APLIQUE UN PARCHE TWICE A WEEK 5 Active Active Problems Problem Noted Date Diagnosed Date Thyroid nodule 04/22/2024 Overview (09/11/2024): Ultrasound of thyroid on 04/08/2020 showed stable left-sided thyroid nodule, 1 stable nodule on the right side of the thyroid and one stable nodule on the right side that has decreased in size. Fine-needle aspiration biopsy done in 2018 showed benign left-sided thyroid nodule. Depression 12/27/2023 Uterine fibroid 08/08/2022 Overview (09/11/2024): 08/07/2022 FINDINGS: The uterus measures 10.1 x 5.2 x 4.9 cm for a volume of 134 mL, and contains a 2.0 x 2.7 x 3.5 cm exophytic left fundal fibroid, previously 1.8 x 1.4 x 2.6 cm. Psoriasis of scalp 07/05/2021 Perimenopause 05/23/2020 Overview (09/11/2024): Last Assessment & Plan: I discussed symptoms of perimenopause with the patient. Recommend that she keep track of her menstrual cycles. Discussed definition of menopause is 1 year without menses and that perimenopause can vary in duration. Recommend follow-up if menopausal symptoms become bothersome Dyslipidemia 06/15/2019 Lactose intolerance 02/09/2019 Migraine 01/18/2015 Asthma 12/11/2013 Allergic rhinitis 02/25/2012 Anxiety 02/25/2012 Backache 02/25/2012 Constipation 02/25/2012 GERD (gastroesophageal reflux disease) 2 Encounters Date Type Department Care Team Description 09/23/2024 3:30 PM EST Office Visit [facility] [address] [place] [address] Kleber Wadsworth 09/11/2024 3:00 PM EST Office Visit [facility] [address] [place] [address] Frandy Javier, SINA History of revision of root canal treatment of anterior tooth (Primary Dx); Chronic dental pain 08/19/2024 11:30 AM EST Office Visit [facility] [address] [place] [address] Ana Amor 08/19/2024 Telephone [facility] [address] [place] [address] Ana Amor Patient states DD of [place] from Last 3 Months Social History Tobacco Use Types Packs/Day Years Used Date Smoking Tobacco: Never Smokeless Tobacco: Never Tobacco Cessation:Counseling Given: Not Answered Alcohol Use Standard Drinks/Week Comments Never 0 (1 standard drink = 0.6 oz pur e alcohol) Comments Unknown Sex and Gender Information Value Date Recorded Sex Assigned at Female 05/21/2022 10:18 AM EDT Legal Sex Female 10:18 AM EDT Gender Identity Female 05/21/2022 10:18 AM EDT Sexual Orientation Choose not to disclose 2021 10:18 AM EDT Plan of Treatment Health Maintenance Due Date Last Done Comments CT Colonography 1967 Colonoscopy 1967 Colorectal Cancer Screening 1967 Depression Screening 1967 FIT DNA/Cologuard 1967 FIT 1967 FOBT 1967 HIV Screening 1967 SDOH Screening 1967 Sigmoidoscopy 1967 Alcohol/Substance Use Screening 1979 Hepatitis C Screening 1985 Hepatitis B Vaccines (1 of 3 - 19+ 3-dose series) 1986 Pap Smear 1988 Cervical Cancer Screening 1997 HPV/Cotest 1997 Zoster Vaccines (1 of 2) 2017 Pneumococcal Vaccine: 50+ Years (2 of 2 - PCV) 04/20/2017 04/20/2016, 01/30/2011 Dental Oral Exam 12/27/2021 06/27/2021, 09/2019, 07/28/2019, Additional history exists Dental Prophylaxis 12/27/2021 06/27/2021, 0 12/27/2020, 07/08/2020, Additional history exists Dental X-Ray: Bitewings 09/28/2022 09/28/19, 08/08/2021, 12/27/2020, Additional history exists Dental X-Ray: Full Mouth 05/25/2023 05/24/2020, 03/22 COVID-19 Vaccine ( season) 2024 12/06/2020, 11/08/2020 Influenza Vaccine (#1) 2024 4, 03/26/2013, 03/26/2013, Additional history exists Tobacco Screening 09/23/2025 09/23/2024 Mammogram 06/25/2026 06/25/2024 DTaP/Tdap/Td Vaccines (3 - Td or Tdap) 09/18/2028 09/18/2018, 12/16/2012, 01/10/2006 RSV Patients and Patients Aged 60 years or older (1 - 1-dose 75+ series) 2042 HIB Vaccines Aged Out No longer eligi [...] patient's age to complete this topic Meningococcal Vaccine Aged Out No tammy vidya eligible based on patient's age to complete this topic RSV under 20 months Aged Out No longe r eligible based on patient's age to complete this topic Rotavirus Vaccines Aged Out No longer eligible based on patient's age to complete this topic Procedures Procedure Name Priority Date/Time Associated Diagnosis Comments 9 INTRAORAL - PERIAPICAL FIRST RADIOGRAPHIC IMAGE Routine 09/23/2024 3:30 PM EST LIMITED ORAL EVALUATION - PROBLEM FOCUSED Routine 09/23/2024 3:30 PM EST CASE PRESENTATION, DETAILED AND EXTENSIVE TREATMENT PLANNING Routine 09/11/2024 3:00 PM EST History of revision of root canal treatment of anterior tooth Chronic dental pain RE-EVAL - LIMITED, PROBLEM FOCUSED (EST PATIENT; NOT POST-OP VISIT) Routine 09/11/2024 3:00 PM EST History of revision of root canal treatment of anterior tooth Chronic dental pain INTRAORAL - PERIAPICAL FIRST RADIOGRAPHIC IMAGE Routine 08/19/2024 11:30 AM EST 9 LIMITED ORAL EVALUATION - PROBLEM FOCUSED Routine 08/19/2024 11:30 AM EST BITEWING - SINGLE RADIOGRAPHIC IMAGE Routine 09/27/2021 12:00 AM EST PROPHYLAXIS - ADULT Routine 06/27/2021 1 2:00 AM EST PERIODIC ORAL EVALUATION - ESTABLISHED PATIENT Routine 06/27/2021 12:00 AM EST PANORAMIC RADIOGRAPHIC IMAGE Routine 05/24/2020 12:00 AM EST from Last 3 Months or Most Recently Relevant to Health Maintenance Insurance DENTAL - [facility] FULL (MEDICAID) DENTAL - [facility]
== END 2024-10-21 15:53 | disposition home or self-care (01) ==
LOC: HO.HSMS 15:23
PROVIDERS: PCP Internal Medicine; Visit Provider Nurse Practitioner Family
DX: G43.109 Migraine with aura, not intractable, without status migrainosus (principal); M54.2 Cervicalgia
CPT/HCPCS: 99214

== ENCOUNTER → 2024-10-21 15:23 | Outpatient (BNVA) | payer OTHER, SELFPAY | PROVIDERS: PCP Internal Medicine; Visit Provider Nurse Practitioner Family | DX: G43.109 Migraine with aura, not intractable, without status migrainosus (principal); M54.2 Cervicalgia | CPT/HCPCS: 99212 ==

== ENCOUNTER 2025-05-10 14:17 | Outpatient (AMB) | payer OTHER, SELFPAY ==
[2025-05-10 14:20] VITALS: BP 120/72; BMI 25.6
--- NOTE | 2025-05-10 14:20 | A.OFFVIS_ITS ---
Vital Signs 05/10/25 14:20 Height 5 ft Weight 131 lb BMI 25.6 BP 120/72 Blood Pressure Location Rt brachial Position Sitting Comment Unable to obtain O2 and pulse due to nails Intake Visit Reasons: 7 mo follow up Intake Note: Patient presents follow up Migraine medication Bit Sander Required: No Accompanied by: Self / Same As Patient Allergies pollen Allergy (Unknown, Uncoded 05/10/25 14:23) Unknown Medication List - Last Reconciled 05/10/25 by MILTON Summers albuterol sulfate mg inhalation Q4H PRN amitriptyline 10 mg PO BEDTIME 30 days baclofen 5 - 10 mg (1 - 2 x 5 mg) PO BEDTIME PRN 30 days cetirizine 10 mg PO DAILY citalopram 20 mg PO DAILY clobetasol 0.05% mL topical cyclobenzaprine 5 - 10 mg (1 - 2 x 5 mg) PO BEDTIME PRN 30 days fluocinolone and shower cap 0.01 % ea topical BID PRN fluticasone propionate 50 mcg/actuation 2 sprays intranasal DAILY galcanezumab-gnlm (Emgality Pen) 120 mg subcut ONCE 30 days hydroxyzine HCl 25 mg PO BEDTIME PRN magnesium oxide 400 mg PO BEDTIME mometasone 200 mcg/actuation (Asmanex HFA) 0 mcg inhalation BID omeprazole 20 mg PO DAILY PRN riboflavin (vitamin B2) 400 mg PO DAILY rizatriptan 10 mg PO Q2H PRN 30 days tacrolimus 0.1% topical topiramate 25 mg PO BEDTIME 30 days HPI Comments Details: 60-yr-old female presents for f/u visit of migraine d/o and cervicalgia. Pt denies any significant interval medical changes. Since the last visit, her insurance required a trial of topiramate, and thus she stopped Emgality. She did start topiramate at 25mg qhs, however she had to stop it because it caused palpitations. She is again having 1-2 moderate migraine days per month, and severe migraine 3 days per month, lasting 2-3 days per attack. Stress can trigger a migraine. Rizatriptan is helpful. Emgality was previously very effective She continues to have intermittent neck tightness. Cyclobenzaprine 5 10 q.h.s. is helpful. 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 Baseline headache characteristics: Bilateral frontal, parietal top of head pressure, throbbing pain a/w photophobia, phonophobia, osmophobia w/ strong smells, nausea, neck tightness, allodynia, some difficulty thinking, activity intolerance. [facility] Medical History HTN (hypertension) Asthma Migraine Surgical History S/P thyroid biopsy H/O breast surgery Hx of section Family History Father HTN (hypertension) Mother HTN (hypertension) Diabetes Skin cancer Sister HTN (hypertension) Maternal Grandfather Lung cancer Maternal Grandmother Skin cancer Social History Household Members: Spouse Housing: House Alcohol intake: current Alcohol intake frequency: holidays/special occasions only Patient Tobacco Use Status: Never used Tobacco Physical Exam Vital Signs: Last Vital Signs BP 120/72 05/10/25 14:20 BMI result Body Mass Index 25.6 Const General: cooperative and no acute distress Orientation/consciousness: patient oriented x3 Resp Effort & Inspection: normal respiratory effort and able to speak in complete sentences Neuro Other: Posterior cervical muscle tightness General: patient oriented x3 Cranial nerves: Yes CN's II-XII intact bilaterally Cognition (Neuro): normal cognition Psych Appearance: grossly normal Mental Status: mental status grossly normal Speech and movement: Normal speech and movement present Affect: normal affect Attitude: cooperative Assessment & Plan Assessment & Plan (1) Migraine with aura, not intractable, without status migrainosus: Code(s): G43.109 - Migraine with aura, not intractable, without status migrainosus Category: Medical (2) Cervicalgia: Code(s): M54.2 - Cervicalgia Category: Medical Plan For cervicalgia: May use cyclobenzaprine 5-10mg qhs prn. For overall headache management: It is important to practice good self-care, including but not limited to eating a healthy diet, drinking enough fluids (typically 64 oz per day), maintaining a good sleep routine, and engaging in regular physical activity (typically 30-45 minutes of moderate physical activity 5 days per week). For acute headache treatment: It is important to take as needed acute medications at the first sign of headache, however you want to avoid taking most as needed headache too often as this can lead to medication overuse/adaptation headaches. * Continue Rizatriptan 10mg tab, 1/2 - 1 tab (5-10mg) at onset of headache, may repeat in 2 hours. Max of 2 tabs (200mg) per 24 hours. May adjunct with OTC Tylenol 650mg every 4 hours, Ibuprofen (liquigel) 600mg every 6 hours, or Naproxen (liquigel) 440mg every 12 hrs as needed. Acute migraine medication contraindications: None For headache prevention medication: * Resume riboflavin 400 mg daily in the morning * Discontinue topiramate 25 mg q.h.s. order * Resume Emgality, as the patient previously had > 50% reduction in monthly migraine days with the use. * Instructions for Emgality 120mg/ml auto-injection: * Loading dose: 240mg (2 120mg/ml auto-injections) via subcutaneous injection in 2 different sites). * Then 30 days after loading dose, start Maintenance dose: 120mg (120mg/ml autoinjector) subcutaneous injection every month. * Important considerations: * Store Emgality in the refrigerator in it's original packaging in order to protect from light. * Remove Emgality at least 1 hour prior to taking the injection. * Emgality can be left out of the fridge for?up to 7 days at a temperature not above 86?F. If either of these conditions are exceeded, then Emgality must be thrown away. * Once Emgality has been stored out of refrigeration, do not place it back in the refrigerator. Previous migraine prevention medication trials: Amitriptyline 10mg qhs- caused sleepiness. Topiramate 25 mg- caused palpitations. Magnesium- cause GI upset Migraine prevention medication contraindications: Beta-blockers d/t symptomatic asthma dx. Follow-up in 6 months or sooner prn. Medications: Changed From riboflavin (vitamin B2) 400 mg PO DAILY 30 tabs 6RF To riboflavin (vitamin B2) 400 mg PO DAILY 30 tabs 11RF 30 days From galcanezumab-gnlm (Emgality Pen) maintenance dose of 120 mg subcu q.month. 120 mg subcut ONCE 30 days 1 mL 11RF G43.109 - Migraine with aura, not intractable, without status migrainosus To galcanezumab-gnlm (Emgality Pen) 240mg loading dose, to be f/b 120mg monthly maintenance dose. 240 mg (2 mL) subcut ONCE 1 mL 0RF 30 days G43.109 - Migraine with aura, not intractable, without status migrainosus Refilled cyclobenzaprine 5 - 10 mg (1 - 2 x 5 mg) PO BEDTIME PRN 30 tabs 6RF muscle spasm 30 days rizatriptan Max 2 tabs per day or 6 tabs/week 10 mg PO Q2H PRN 12 tabs 6RF for migraine 30 days cyclobenzaprine 5 - 10 mg (1 - 2 x 5 mg) PO BEDTIME 30 days PRN 30 tabs 6RF muscle spasm Discontinued magnesium oxide Discontinued Reason: Doctor's Order 400 mg PO BEDTIME 30 tabs 6RF baclofen Discontinued Reason: Doctor's Order 5 - 10 mg (1 - 2 x 5 mg) PO BEDTIME 30 days PRN 60 tabs 3RF muscle spasm topiramate Discontinued Reason: Doctor's Order 25 mg PO BEDTIME 30 days 30 tabs 1RF amitriptyline Discontinued Reason: Doctor's Order 10 mg PO BEDTIME 30 days 30 tabs 3RF Coding Level of Care Code Est Pt Level 4 (40285) Diagnoses Migraine with aura, not intractable, without status migrainosus G43.109 Cervicalgia M54.2
--- OUTSIDE RECORDS SUMMARY | 2025-05-10 18:02 | XMS_ITS | Data Portability ---
Author Organization [facility] [id number] Address [address] [place] [address] Care Team Providers Care Sales Agent Pest Control Service Name Role Phone ROOPA AGEE Referring Provider ELVIE JOSEPH Primary Care Provider [phone] Assessment Encounter Date Assessment Date Assessment LastModified by Organization Details LastModified Time 11/27/2024 11/27/2024 59-year-old with neck upper back and right shoulder and arm pain. I examined and interviewed the patient, reviewed the record, and determined the patient to be a good candidate for trial of trigger point injections for myofascial pain. I went over the risks, benefits, alternatives, complications of injection versus conservative therapy with the patient. I spent 50 minutes reviewing the record and interviewing and examining the patient. [email or web address] Not available 11/30/2024 09:55:19 Plan of Treatment Reminders Order Date Submit Date Provider Last Modified By Organization Details Last Modified Time Details Appointments None record ed. Lab None record ed. Referral None record ed. Procedures None record ed. Surgeries None record ed. Imaging None record ed. Medication Orders None record ed. Patient TargetsNo targets recorded. Patient InstructionsNo instructions recorded. Reason for Referral None Reported. Results Created Date Observation Date Name Description Value Unit Range Abnormal Flag Note LastModifiedBy Organization Detail LastModifiedTime 12/02/19 25 08/14/2024 XR, cervi jerrell spine , 4 or 5 view No observ ation record ed. [email or web address] Not Available 2024 10:46:00 Result Notes None recorded. Procedures Surgical History Date Name Laterality Status Provider Name and Address Organization Details Recorded Time section completed Mi Batista [facility] 11/26/2024 15:12:15 ligation of fallopian tube completed [facility] 11/26/2024 15:12:23 colonoscopy completed Mi [facility] 11/26/2024 15:12:30 operation on breast duct completed [facility] 11/26/2024 15:12:57 liposuction of subcutaneous tissue completed [facility] 11/27/2024 14:45:34 Imaging Results None recorded. Procedure Notes None recorded. Medical Equipment None Reported. Allergies Allergen ID Allergen Name Allergen Category Reaction Reaction Severity Criticality Documentation Date Start Date Code Code System Note Provider Name and Address Organization Details Recorded Time 71209 adhesive environme nt,medica tion Not available Not available Not available 11/26/2024 [facility] 5 15:11:56 28835 strawberr y allergeni c extract food Not available Not available Not available 11/27/2024 72219 4 RxNorm [facility] 5 14:44:04 07128 pineapple extract food Not available Not available Not available 11/27/2024 98760 74 RxNorm [facility] 5 14:44:11 70690 peach food Not available Not available Not available 11/27/2024 [facility] 5 14:44:17 39240 grape extract food,medi cation Not available Not available Not available 11/27/2024 10782 2 RxNorm [facility] 5 14:44:29 Medications Name Sig Start Date Stop Date Status Note LastModified by Organization Details LastModified Time amoxicillin 500 mg capsule TOME 1 C PSULA (500 MG) POR V A ORAL CADA OCHO HORAS POR 7 D active Not Available Not Available N ot Available prednisone 10 mg tablet PLEASE SEE ATTACHED FOR DETAILED DIRECTIONS active Not Available Not Available N ot Available Estring 2 mg (7.5 mcg/24 hour) vaginal ring INSERT 1 RING INTO THE VAGINA EVERY 3 (THREE) MONTHS. FOLLOW PACKAGE DIRECTIONS active Not Available Not Available N ot Available albuterol sulfate 2.5 mg/3 mL (0.083 %) solution for nebulization TAKE 1 VIAL BY NEBULIZATIO N EVERY 4 HOURS NEEDED FOR WHEEZING OR SHORTNESS OF BREATH. active Not Available Not Available N ot Available rizatriptan 10 mg tablet TAKE 1 TABLET EVERY 2 HOURS NEEDED FOR FOR MIGRAINE FOR 30 DAYS MAX 2 TABS PER DAY OR 6 TABS/WEEK active Not Available Not Available Not Available topiramate 25 mg tablet TOME 1 TABLETA POR V A ORAL TODOS LOS D AL ACOSTARSE active Not Available Not Available No t Available estradiol 0.05 mg/[address] 1 PATCH ON THE SKIN 2 TIMES A WEEK. active Not Available Not Available No t Available acetaminophe n 500 mg tablet TOME ZOIE TABLETA POR V A ORAL CADA SEIS HORAS CUANDO SEA NECESARIO PARA EL DOLOR POR 7 D active Not Available Not Available No t Available meloxicam 7.5 mg tablet TOME 1 TABLETA POR V A ORAL TODOS LOS D ONLY NEEDED FOR PAIN active Not Available Not Available No t Available oxycodone-ac etaminophen 5 mg-325 mg tablet TAKE 1 TABLET BY MOUTH EVERY 4-6 HOURS NEEDED FOR PAIN ALLOWED TO DISPENSE LESSER QUANTITY active Not Available Not Available No t Available citalopram 20 mg tablet TOME 1 TABLETA POR V A ORAL TODOS LOS D active Not Available Not Available No t Available polymyxin B sulfate 10,000 unit-trimeth oprim 1 mg/mL eye drops PLACE 1 DROP INTO THE RIGHT EYE 4 TIMES DAILY FOR 7 DAYS. active Not Available Not Available No t Available loratadine 10 mg tablet TOME 1 TABLETA POR V A ORAL TODOS LOS D active Not Available Not Available No t Available Ventolin HFA 90 mcg/actuatio n aerosol inhaler TAKE 2 PUFFS EVERY 4-6 HOURS NEEDED FOR COUGHING OR WHEEZING OR SHORTNESS OF BREATH active Not Available Not Available No t Available cyclobenzapr ine 5 mg tablet TOME ZOIE O DOS TABLETAS POR V A ORAL AL ACOSTARSE PARA EL ESPASMO MUSCULAR CUANDO SEA NECESARIO active Not Available Not Available No t Available clobetasol 0.05 % shampoo APPLY TO SCALP 2X A WEEK, LEAVE ON 5 MINUTES THEN WASH OFF active Not Available Not Available No t Available fluocinolone 0.01 % scalp oil and shower cap APPLY TOPICALLY TO SCALP DOS VECES AL D A CUANDO SEA NECESARIO ITCH active Not Available Not Available No t Available estradiol-no rethindrone acet 0.5 mg-0.1 mg tablet TOME 1 TABLETA POR V A ORAL TODOS LOS D active Not Available Not Available No t Available Asmanex HFA 200 mcg/actuatio n aerosol inhaler TOME DOS INHALACIONE S POR V A ORAL DOS VECES AL D A active Not Available Not Available No t Available baclofen 5 mg tablet TAKE 1-2 TABLETS ORALLY AT BEDTIME NEEDED FOR MUSCLE SPASM FOR 30 DAYS active Not Available Not Available No t Available Vitals Date Recorded Body height Body mass index (BMI) Body weight Heart rate Oxygen saturation Oxygen saturation in Arterial blood by Pulse oximetry Body temperature Systolic And Diastolic Provider Name and Address Organization Details Last Updated DateTime 5 152.4 cm 25.6 kg/m2 86492.6 g 77 /min 100 % 100 % 98 [degF] 129/82 mm[Hg] [facility] 5 14:42:37 Social History None recorded. Functional Status None recorded. Mental Status None recorded. Family History Nothing Reported. Medical History Condition Response Diabetes N Allergies/Hayfever Y Anxiety Y Hernia N Head Trauma/Injury Acid Reflux (GERD) Y Migraines Y Asthma Y Depression N Substance Use N Back Injury N Ulcers N Heart Attack (IA) N Hypertension Y Gynecological HistoryNo gynecological history recorded. Obstetrics History GPAL:G 0 P 0 0 0 0 Past Encounters Encounter ID Performer Location Encounter Start Date Encounter Closed Date Diagnosis/Indication Diagnosis SNOMED-CT Code Diagnosis ICD10 Code Diagnosis IMO Codes Diagnosis Note [id number] Jasper Jaeger MD [id number] [address] [place] [address] 11/27/2024 13:40:26 11/30/2024 09:55:28 Myofascial pain 855267428 M79.18 258641 Health Concerns Section Related Observation LastModified by Organization Detai ls LastModified Time None Recorded Concern Status LastModified by Organization Details LastModified Time None Recorded Advance Directives Directive None Recorded Payers Insurance Date Sequence Insurance Name Policy Number Policy Castillo Covered Member ID Castillo Member ID Guarantor Name 11/24/2024 1 [facility] - [facility] (MEDICAID REPLACEMENT - HMO) [id number] Xin Pinto [id number] Xin Pinto Notes Date Note Type Note Provider Name and Address Organization Details Recorded Time 11/27/2024 text/html ROS as noted in the HPI The patient is a 59-year-old female who comes in for her initial consultation with complaint of 5 months of right neck, arm and shoulder pain and right arm weakness and numbness. Left lower extremity head causes pain. Patient is taking baclofen 5 mg at at bedtime for muscle spasms. She cannot take ibuprofen because it causes stomach pain. She does take Tylenol occasionally. She underwent physical therapy which did not help. Shoulder x-ray and MRI showed AC joint arthritis and rotator cuff tendinopathy. Dr. Mix injected her shoulder which improved some. She had an MRI of the cervical spine which showed C5-6 left facet arthropathy and disc bulge, also C6-7 left foraminal stenosis and disc space height loss with endplate irregularity. She had right-sided cervical facet injections by Dr. Rios. The translating service was used for the visit. Jasper Jaeger MD [facility], [place] [facility] 11/30/2024 09:55:24 OBGyn Episode No OBEpisode recorded.
== END 2025-05-10 15:26 | disposition home or self-care (01) ==
LOC: HO.HSMS 14:18
PROVIDERS: PCP Internal Medicine; Visit Provider Nurse Practitioner Family
DX: G43.109 Migraine with aura, not intractable, without status migrainosus (principal); M54.2 Cervicalgia
CPT/HCPCS: 99214

== ENCOUNTER → 2025-05-10 14:17 | Outpatient (BNVA) | payer OTHER, SELFPAY | PROVIDERS: PCP Internal Medicine; Visit Provider Nurse Practitioner Family | DX: G43.109 Migraine with aura, not intractable, without status migrainosus (principal); M54.2 Cervicalgia | CPT/HCPCS: 99212 ==